=== PATIENT | male | born 1940 | race Caucasian/White ===

== ENCOUNTER → 2020-02-25 | Outpatient (REF) | payer MEDICARE, BC | LOC: M LAB REF 17:35 | PROVIDERS: ATTEND Dermatology | DX: L90.5 Scar conditions and fibrosis of skin (principal); L57.0 Actinic keratosis ==

== ENCOUNTER → 2020-08-21 | Outpatient (REF) | payer MEDICARE, BC | LOC: M LAB REF 14:11 | PROVIDERS: ATTEND Dermatology | DX: L90.5 Scar conditions and fibrosis of skin (principal); L82.1 Other seborrheic keratosis ==

== ENCOUNTER → 2022-08-24 | Outpatient (REF) | payer MEDICARE, BC | LOC: M SFHCDERM 14:11 | PROVIDERS: ATTEND Dermatology | DX: D23.61 Other benign neoplasm of skin of right upper limb, including shoulder (principal); L82.1 Other seborrheic keratosis; L81.4 Other melanin hyperpigmentation ==

== ENCOUNTER → 2024-06-12 | Outpatient (REF) | payer MEDICARE, BC | LOC: M LAB REF 16:48 | PROVIDERS: ATTEND Surgery | DX: C43.59 Malignant melanoma of other part of trunk (principal) ==

== ENCOUNTER → 2025-05-14 | Outpatient (REF) | payer MEDICARE, BC | LOC: M LAB REF 15:30 | PROVIDERS: ATTEND Surgery | DX: C43.59 Malignant melanoma of other part of trunk (principal) ==